=== PATIENT | female | born 1945 | race Caucasian/White ===

== ENCOUNTER 2016-08-11 03:30 | Inpatient (IN) | payer MEDICARE ==
--- NOTE | ~2016-08-11 | DS ---
Discharge Summary [facility] [address] [place]. [address] NAME: FLOR CUELLAR : 41 STATUS : DIS IN PAT#: [id number] AGE: 71 ADM/REG DATE : 08/11/16 MR#: [id number] REPORT SERV DATE: 08/19/16 DICTATED BY: AVELINO RIVERA DATE: 08/18/16 REPORT STATUS : Draft TRANSCRIBED BY: MODJennyfer DATE: 08/18/16 ADMISSION DATE: 08/11/2016 DISCHARGE DATE: 08/18/2016 DISCHARGE DIAGNOSES: 1. Left hip cellulitis. 2. Urinary tract infection. 3. Chronic sacral decubitus, present on arrival. 4. Advanced dementia. 5. Chronic kidney disease. 6. Bradycardia with pacemaker. 7. Hyperlipidemia. HOSPITAL COURSE: Please see Dr. Silva Underwood's admission H and P from 08/11/2016 and Jl Lindo' interim discharge summary from 08/16/2016 for full details on hospital admission and stay. The patient's left hip cellulitis and UTI were resolved. When I took over the patient's care, she was still finishing out oral antibiotic for UTI and had finished antibiotics for cellulitis. At the time of discharge, her primary issues were that she has quite advanced dementia, and it is difficult, with her agitation and behavioral issues, to keep them controlled without keeping her sedated, and so she is on large dose of Seroquel 200 mg q.h.s. She does have a history of bipolar, so that I had a along discussion with daughter today about long-term plan and what would happen if the patient took further decline. Currently, she is at assisted living facility in [facility] and apparently the facility does have another wing that is for the more advanced dementia patients and felt like they could meet the patient's needs. care home facility was not appropriate as she is assisted care and the main issue is her dementia. So, she will be returning to assisted living facility. Daughter is understanding that she has advanced enough that she is approaching end-stage of dementia and not far away from hospice being appropriate, and so she plans on working on further management with the facility. Also, the patient needs further psych med adjustment, and so I have recommended home health care. The outsole caser has arranged home health care with psych nursing visits and her to be established with a psychiatrist as outpatient. DISCHARGE CONDITION: Stable. DISCHARGE MEDICATIONS: 1. Exelon patch 4.6 mg topically daily. 2. Vitamin B complex one tablet daily. 3. Cymbalta 60 mg p.o. daily. 4. Namenda 7 mg p.o. daily. 5. Ditropan 5 mg p.o. daily. 6. Vitamin B12 of 1000 mcg p.o. daily. 7. Vitamin D3 of 2000 units p.o. daily. 8. Zantac 150 mg p.o. b.i.d. 9. Lasix 20 mg p.o. b.i.d. 10.Ferrous sulfate 325 mg p.o. b.i.d. Discharge Summary [address] [address] NAME: FLOR CUELLAR : 41 STATUS : DIS IN PAT#: [id number] AGE: 71 ADM/REG DATE : 08/11/16 MR#: [id number] REPORT SERV DATE: 08/19/16 DICTATED BY: VAELINO RIVERA DATE: 08/18/16 REPORT STATUS : Draft TRANSCRIBED BY: MYRANDA DATE: 08/18/16 11.Seroquel 200 mg p.o. at bedtime. 12.Keppra 500 mg p.o. b.i.d. 13.Lipitor 10 mg p.o. at bedtime. 14.Amoxicillin 500 mg p.o. b.i.d. x3 more doses. 15.Haldol 1 mg p.o. q.6 hours p.r.n. agitation. 16.Megace 400 mg p.o. daily. 17.Seroquel 50 mg p.o. q.12 hours p.r.n. agitation. DISCHARGE PLAN: The patient is discharged via ambulance back to assisted living facility and follow up with primary care, Dr. Arreola and home health care for psych visits and PT. TDR/MYRANDA Avelino Rivera APN / [id number] CC: Stacey Puckett M.D. Quentin Hodges M.D.
--- NOTE | ~2016-08-11 | IDS ---
Interim Discharge Summary [facility] [address] [place]. [address] NAME: FLOR CUELLAR : 41 STATUS : ADM IN PAT#: [id number] AGE: 71 ADM/REG DATE : 08/11/16 MR#: [id number] REPORT SERV DATE: 08/16/16 DICTATED BY: DATE: REPORT STATUS : Draft TRANSCRIBED BY: MODL DATE: 08/16/16 ADMISSION DATE: 08/11/2016 DISCHARGE DATE: INTERIM DISCHARGE DIAGNOSES: 1. Left hip cellulitis. 2. Urinary tract infection with Escherichia coli. 3. Chronic sacral decubitus that was present on arrival. 4. Chronic kidney disease, possibly an acute kidney injury. 5. Dementia. 6. Bradycardia with pacemaker. 7. Hyperlipidemia. CONSULTING PHYSICIANS: None. IMAGING: Portable chest x-ray, there was bibasilar atelectasis with mild venous congestion. Stable enlargement of the cardiac silhouette with left chest pacemaker. For full H and P, please refer to Dr. Silva Underwood's dictation on 08/11/2016. HOSPITAL COURSE/PROBLEM LIST: 1. Left hip cellulitis. The patient was admitted and placed on vancomycin and cefepime IV. She has a history of skin infections that progressed to sepsis in the past. According to her daughter, they are from [place] and recently moved here, so it seem prudent at that time to start empiric antibiotics. Her cellulitis improved dramatically. I actually discontinued her vancomycin and cefepime on 08/13/2016 and placed her on doxycycline p.o. to cover possible MRSA. She has been afebrile and her white blood cell count has been normal and her blood cultures were negative. 2. Urinary tract infection. She grew E coli. Place the patient on Augmentin p.o. Again, she has had no fever, no white count, no urinary tract infection symptoms, no dysuria, frequency, or urgency, hematuria, or flank pain. 3. Chronic sacral decubitus. The patient has had colon cancer in the past and received radiation to the pelvis and started a chronic decubitus ulcer. She is receiving wound care, dressing is present. 4. Chronic kidney disease. Possibly acute kidney injury. The patient came in with an elevated creatinine. We do not have a baseline. Initially on 08/10/2016, her creatinine was 2.55, has been as low as 1.99 on 08/13/2016 after IV fluids. After I discontinued the IV fluids, her current creatinine level is back to 2.55. The patient has had a poor appetite and has not taken p.o. fluids. I encouraged this, explained this to her daughter who is her power of family law attorney. I will recheck creatinine tomorrow. She might need IV fluids. However, if she is alert and oriented enough to drink water, so hopefully it will go down. 5. Dementia. The patient is on rivastigmine as well as memantine. Her dementia is relatively advanced. I explained to the daughter that likely her appetite suppression is from her dementia and not from an acute illness and that this will only progressed as her disease progresses. The plan is to get her to SNF. She was actually accepted Interim Discharge Summary [address] [address] NAME: FLOR CUELLAR : 41 STATUS : ADM IN PAT#: [id number] AGE: 71 ADM/REG DATE : 08/11/16 MR#: [id number] REPORT SERV DATE: 08/16/16 DICTATED BY: DATE: REPORT STATUS : Draft TRANSCRIBED BY: MODL DATE: 08/16/16 at [facility]; however, they did not have any beds today, so she likely can be discharged tomorrow when a bed is available. YOJANA/MODL Elvis Lindo NP / [id number] CC: Alfonso Beaver MD
[~2016-08-11 03:30] MED LIST: COZ25 PO; CYANO1000T PO; CYMBALTA30 PO; CYMBALTA60 PO; DITROXL5 PO; EXELON4.6T TOP; FERROUS SULF325 M1 PO; KEPPRA500 PO; L20 PO; LIPITOR10 PO; NAMENXR7 PO; SEROQUEL XR200 MG PO; SUPER B COMP PO; VITAMIN D31000 UNIT PO; ZANTAC 150 PO
[2016-08-11 14:15] LABS: ALBUMIN 2.6 G/DL (3.5-5.0); ALKALINE PHOSPHATASE 106 U/L (45-117); BUN (BLOOD UREA NITROGEN) 28 MG/DL (6-23); CALCIUM, SERUM 8.8 MG/DL (8.5-10.4); CHLORIDE, SERUM 108 MMOL/L (96-112); CO2 (CARBON DIOXIDE) 21 MMOL/L (24-34); CREATININE 2.26 MG/DL (0.55-1.02); DIRECT BILIRUBIN < 0.1 MG/DL (0.0-0.4); GFR AFRICAN AMERICAN 24 ML/MIN (>=60); GFR NON AFRICAN AMERICAN 21 ML/MIN (>=60); GLUCOSE, SERUM 100 MG/DL (60-99); INDIRECT BILIRUBIN(NOT ORDER) 0.3 MG/DL (0.1-0.9); POTASSIUM, SERUM 4.1 MMOL/L (3.5-5.3); SGOT(AST) 28 U/L (5-40); SGPT(ALT) 17 U/L (5-65); SODIUM, SERUM 141 MMOL/L (135-148); TOTAL BILIRUBIN 0.4 MG/DL (0-1.2); TOTAL PROTEIN 6.8 G/DL (6.0-8.5)
[2016-08-11 14:28] LABS: PROCALCITONIN 1.05 ng/mL (<0.5)
[2016-08-11 17:10] LABS: BASOPHILS 0.1 %; BASOPHILS ABSOLUTE 0.02 10/3/uL (0.0-0.16); EOSINOPHILS 1.2 %; EOSINOPHILS ABSOLUTE 0.17 10/3/uL (0.0-0.53); HEMATOCRIT 29.5 % (36.0-48.0); HEMOGLOBIN 10.1 g/dL (12.0-16.0); IMMATURE GRANULOCYTES 0.3 %; IMMATURE GRANULOCYTES ABSOLUTE 0.04 10/3/uL (0.0-0.11); LYMPHOCYTES 12.6 %; LYMPHOCYTES ABSOLUTE 1.76 10/3/uL (0.67-4.30); MEAN CORPUS HGB CONC 34.2 g/dL (32.0-36.0); MEAN CORPUSCULAR HEMOGLOB 34.6 pg (26.0-34.0); MONOCYTES 6.1 %; MONOCYTES ABSOLUTE 0.85 10/3/uL (0.21-1.20); NEUTROPHILS 79.7 %; NEUTROPHILS ABSOLUTE 11.18 10/3/uL (2.02-8.40); PLATELET COUNT 158 10/3/uL (150-400); RBC DISTRIBUTION WIDTH 12.9 % (12.0-16.0); RED CELL COUNT 2.92 10/6/uL (4.0-5.6)
[2016-08-11 17:13] LABS: MANUAL DIFF NO %
[2016-08-12 06:10] LABS: BASOPHILS 0.2 %; BASOPHILS ABSOLUTE 0.02 10/3/uL (0.0-0.16); EOSINOPHILS 2.4 %; EOSINOPHILS ABSOLUTE 0.25 10/3/uL (0.0-0.53); HEMATOCRIT 28.5 % (36.0-48.0); HEMOGLOBIN 9.5 g/dL (12.0-16.0); IMMATURE GRANULOCYTES 0.3 %; IMMATURE GRANULOCYTES ABSOLUTE 0.03 10/3/uL (0.0-0.11); LYMPHOCYTES 23.8 %; LYMPHOCYTES ABSOLUTE 2.47 10/3/uL (0.67-4.30); MEAN CORPUS HGB CONC 33.3 g/dL (32.0-36.0); MEAN CORPUSCULAR HEMOGLOB 34.3 pg (26.0-34.0); MEAN CORPUSCULAR VOLUME 102.9 fL (80-100); MEAN PLATELET VOLUME 10.4 fL (9.2-13.0); MONOCYTES 10.4 %; MONOCYTES ABSOLUTE 1.08 10/3/uL (0.21-1.20); NEUTROPHILS 62.9 %; NEUTROPHILS ABSOLUTE 6.53 10/3/uL (2.02-8.40); PLATELET COUNT 139 10/3/uL (150-400); RBC DISTRIBUTION WIDTH 12.8 % (12.0-16.0); RED CELL COUNT 2.77 10/6/uL (4.0-5.6); WHITE BLOOD CELLS 10.4 10/3/uL (4.5-10.5)
[2016-08-12 06:13] LABS: MANUAL DIFF NO %
[2016-08-12 06:27] LABS: BUN (BLOOD UREA NITROGEN) 27 MG/DL (6-23); CALCIUM, SERUM 8.7 MG/DL (8.5-10.4); CHLORIDE, SERUM 108 MMOL/L (96-112); CO2 (CARBON DIOXIDE) 23 MMOL/L (24-34); CREATININE 2.31 MG/DL (0.55-1.02); GFR AFRICAN AMERICAN 24 ML/MIN (>=60); GFR NON AFRICAN AMERICAN 20 ML/MIN (>=60); GLUCOSE, SERUM 101 MG/DL (60-99); POTASSIUM, SERUM 3.7 MMOL/L (3.5-5.3); SODIUM, SERUM 141 MMOL/L (135-148)
[2016-08-13 05:18] LABS: BUN (BLOOD UREA NITROGEN) 26 MG/DL (6-23); CALCIUM, SERUM 9.3 MG/DL (8.5-10.4); CHLORIDE, SERUM 110 MMOL/L (96-112); CO2 (CARBON DIOXIDE) 23 MMOL/L (24-34); CREATININE 1.99 MG/DL (0.55-1.02); GFR AFRICAN AMERICAN 28 ML/MIN (>=60); GFR NON AFRICAN AMERICAN 24 ML/MIN (>=60); POTASSIUM, SERUM 4.2 MMOL/L (3.5-5.3); SODIUM, SERUM 145 MMOL/L (135-148)
[2016-08-13 05:24] LABS: GLUCOSE, SERUM 150 MG/DL (60-99)
[2016-08-13 05:34] LABS: BASOPHILS 0.1 %; BASOPHILS ABSOLUTE 0.01 10/3/uL (0.0-0.16); EOSINOPHILS ABSOLUTE 0.28 10/3/uL (0.0-0.53); HEMATOCRIT 29.5 % (36.0-48.0); HEMOGLOBIN 9.9 g/dL (12.0-16.0); LYMPHOCYTES ABSOLUTE 2.32 10/3/uL (0.67-4.30); MEAN CORPUS HGB CONC 33.6 g/dL (32.0-36.0); MEAN CORPUSCULAR VOLUME 101.4 fL (80-100); MEAN PLATELET VOLUME 10.6 fL (9.2-13.0); MONOCYTES 7.1 %; NEUTROPHILS 55.8 %; NEUTROPHILS ABSOLUTE 3.91 10/3/uL (2.02-8.40); PLATELET COUNT 144 10/3/uL (150-400); RBC DISTRIBUTION WIDTH 12.8 % (12.0-16.0); RED CELL COUNT 2.91 10/6/uL (4.0-5.6)
[2016-08-13 05:38] LABS: MANUAL DIFF NO %
[2016-08-14 04:21] LABS: BUN (BLOOD UREA NITROGEN) 29 MG/DL (6-23); CALCIUM, SERUM 8.6 MG/DL (8.5-10.4); CHLORIDE, SERUM 106 MMOL/L (96-112); CO2 (CARBON DIOXIDE) 27 MMOL/L (24-34); CREATININE 2.17 MG/DL (0.55-1.02); GFR AFRICAN AMERICAN 25 ML/MIN (>=60); GFR NON AFRICAN AMERICAN 22 ML/MIN (>=60); GLUCOSE, SERUM 132 MG/DL (60-99); POTASSIUM, SERUM 4.1 MMOL/L (3.5-5.3); SODIUM, SERUM 144 MMOL/L (135-148)
[2016-08-14 05:05] LABS: BASOPHILS 0.3 %; BASOPHILS ABSOLUTE 0.02 10/3/uL (0.0-0.16); EOSINOPHILS 4.3 %; EOSINOPHILS ABSOLUTE 0.31 10/3/uL (0.0-0.53); HEMATOCRIT 29.1 % (36.0-48.0); HEMOGLOBIN 9.6 g/dL (12.0-16.0); IMMATURE GRANULOCYTES 0.1 %; IMMATURE GRANULOCYTES ABSOLUTE 0.01 10/3/uL (0.0-0.11); LYMPHOCYTES 31.3 %; LYMPHOCYTES ABSOLUTE 2.26 10/3/uL (0.67-4.30); MEAN CORPUSCULAR HEMOGLOB 33.9 pg (26.0-34.0); MEAN CORPUSCULAR VOLUME 102.8 fL (80-100); MONOCYTES 8.2 %; MONOCYTES ABSOLUTE 0.59 10/3/uL (0.21-1.20); NEUTROPHILS 55.8 %; NEUTROPHILS ABSOLUTE 4.04 10/3/uL (2.02-8.40); RBC DISTRIBUTION WIDTH 12.6 % (12.0-16.0); RED CELL COUNT 2.83 10/6/uL (4.0-5.6); WHITE BLOOD CELLS 7.2 10/3/uL (4.5-10.5)
[2016-08-14 05:06] LABS: MANUAL DIFF NO %; PLATELET COUNT 189 10/3/uL (150-400)
[2016-08-16 04:59] LABS: BASOPHILS 0.2 %; BASOPHILS ABSOLUTE 0.02 10/3/uL (0.0-0.16); EOSINOPHILS 3.6 %; EOSINOPHILS ABSOLUTE 0.32 10/3/uL (0.0-0.53); HEMATOCRIT 29.4 % (36.0-48.0); HEMOGLOBIN 9.9 g/dL (12.0-16.0); IMMATURE GRANULOCYTES 0.6 %; IMMATURE GRANULOCYTES ABSOLUTE 0.05 10/3/uL (0.0-0.11); LYMPHOCYTES ABSOLUTE 2.73 10/3/uL (0.67-4.30); MEAN CORPUS HGB CONC 33.7 g/dL (32.0-36.0); MEAN PLATELET VOLUME 10.5 fL (9.2-13.0); MONOCYTES 5.7 %; NEUTROPHILS 58.9 %; NEUTROPHILS ABSOLUTE 5.18 10/3/uL (2.02-8.40); PLATELET COUNT 226 10/3/uL (150-400); RBC DISTRIBUTION WIDTH 12.8 % (12.0-16.0); RED CELL COUNT 2.91 10/6/uL (4.0-5.6); WHITE BLOOD CELLS 8.8 10/3/uL (4.5-10.5)
[2016-08-16 05:00] LABS: CALCIUM, SERUM 9.2 MG/DL (8.5-10.4); CHLORIDE, SERUM 107 MMOL/L (96-112); CO2 (CARBON DIOXIDE) 25 MMOL/L (24-34); CREATININE 2.55 MG/DL (0.55-1.02); GFR AFRICAN AMERICAN 21 ML/MIN (>=60); GFR NON AFRICAN AMERICAN 18 ML/MIN (>=60); GLUCOSE, SERUM 119 MG/DL (60-99); MANUAL DIFF NO %; SODIUM, SERUM 142 MMOL/L (135-148)
[2016-08-16 05:04] LABS: BUN (BLOOD UREA NITROGEN) 44 MG/DL (6-23)
[2016-08-17 07:24] LABS: BASOPHILS 0.4 %; BASOPHILS ABSOLUTE 0.03 10/3/uL (0.0-0.16); EOSINOPHILS 4.8 %; EOSINOPHILS ABSOLUTE 0.33 10/3/uL (0.0-0.53); HEMATOCRIT 30.8 % (36.0-48.0); HEMOGLOBIN 10.2 g/dL (12.0-16.0); IMMATURE GRANULOCYTES 0.9 %; IMMATURE GRANULOCYTES ABSOLUTE 0.06 10/3/uL (0.0-0.11); LYMPHOCYTES 38.7 %; LYMPHOCYTES ABSOLUTE 2.66 10/3/uL (0.67-4.30); MANUAL DIFF NO %; MEAN CORPUS HGB CONC 33.1 g/dL (32.0-36.0); MEAN CORPUSCULAR HEMOGLOB 34.1 pg (26.0-34.0); MEAN PLATELET VOLUME 10.5 fL (9.2-13.0); MONOCYTES ABSOLUTE 0.62 10/3/uL (0.21-1.20); NEUTROPHILS 46.2 %; NEUTROPHILS ABSOLUTE 3.17 10/3/uL (2.02-8.40); PLATELET COUNT 262 10/3/uL (150-400); RBC DISTRIBUTION WIDTH 12.7 % (12.0-16.0); RED CELL COUNT 2.99 10/6/uL (4.0-5.6); WHITE BLOOD CELLS 6.9 10/3/uL (4.5-10.5)
[2016-08-17 07:48] LABS: BUN (BLOOD UREA NITROGEN) 47 MG/DL (6-23); CALCIUM, SERUM 9.5 MG/DL (8.5-10.4); CHLORIDE, SERUM 107 MMOL/L (96-112); CO2 (CARBON DIOXIDE) 25 MMOL/L (24-34); CREATININE 2.39 MG/DL (0.55-1.02); GFR AFRICAN AMERICAN 23 ML/MIN (>=60); GFR NON AFRICAN AMERICAN 19 ML/MIN (>=60); GLUCOSE, SERUM 109 MG/DL (60-99); SODIUM, SERUM 144 MMOL/L (135-148)
[2016-08-18] MEDS ORDERED: AMOXIL500 MG PO (11:46)
[2016-08-18] MEDS ORDERED: H1 PO (12:06)
[2016-08-18] MEDS ORDERED: MEGACEUDL PO (12:07)
[2016-08-18] MEDS ORDERED: SEROQUEL50 MG PO (12:08)
== END 2016-08-18 20:58 | disposition home health service (06) | DRG 602 ==
LOC: CDU1 03:30 → 7NO 14:19
PROVIDERS: Internal Medicine; Nurse Practitioner Acute Care
DX: L03.116 Cellulitis of left lower limb (principal); L89.153 Pressure ulcer of sacral region, stage 3; N17.9 Acute kidney failure, unspecified; N18.4 Chronic kidney disease, stage 4 (severe); E44.0 Moderate protein-calorie malnutrition; I50.32 Chronic diastolic (congestive) heart failure; F03.91 Unspecified dementia, unspecified severity, with behavioral disturbance; N39.0 Urinary tract infection, site not specified; L03.317 Cellulitis of buttock; R00.1 Bradycardia, unspecified; B96.20 Unspecified Escherichia coli [E. coli] as the cause of diseases classified elsewhere; E78.5 Hyperlipidemia, unspecified; F31.9 Bipolar disorder, unspecified; E78.00 Pure hypercholesterolemia, unspecified; I12.9 Hypertensive chronic kidney disease with stage 1 through stage 4 chronic kidney disease, or unspecified chronic kidney disease; Z86.73 Personal history of transient ischemic attack (TIA), and cerebral infarction without residual deficits; Z86.718 Personal history of other venous thrombosis and embolism; Z85.038 Personal history of other malignant neoplasm of large intestine; Z92.21 Personal history of antineoplastic chemotherapy; Z92.3 Personal history of irradiation; Z95.0 Presence of cardiac pacemaker; Z87.01 Personal history of pneumonia (recurrent); Z88.8 Allergy status to other drugs, medicaments and biological substances; Z91.013 Allergy to seafood; Z79.899 Other long term (current) drug therapy
CPT/HCPCS: 71010; 80048; 80053; 80076; 80202; 81001; 83605; 83735; 84145; 85025; 87040; 87077; 87086; 87186; 87804; 96374; 97161-GP; 97530-GP; 99285; A9270-GY; G8978-CK-GP; G8979-CJ-GP; J0692; J2405; J3370; J3486